=== PATIENT | male | born 1950 | race American Indian/Alaskan Native ===

== ENCOUNTER 2016-06-14 07:31 | Day surgery (SDC) | payer MEDICARE, OTHER ==
[2016-06-07 13:22] VITALS: BMI 38.0
[2016-06-14] MEDS ORDERED: Propofol 10 mg/ml Inj (20 ML) ONE (08:45)
[2016-06-14] MEDS ORDERED: Lactated Ringer's 1,000 ML IV SCH (09:39)
[2016-06-14 10:09] VITALS: O2SAT 95
[2016-06-14 10:33] VITALS: BP 132/87; PULSE 79; RESP 18; TEMP 97.6
== END 2016-06-14 11:40 | disposition home or self-care (01) ==
LOC: ENDO 07:31
PROVIDERS: ATTEND Specialist
DX: Z12.11 Encounter for screening for malignant neoplasm of colon (principal); D12.2 Benign neoplasm of ascending colon; D12.0 Benign neoplasm of cecum; D12.4 Benign neoplasm of descending colon; K57.30 Diverticulosis of large intestine without perforation or abscess without bleeding; K64.8 Other hemorrhoids; I25.10 Atherosclerotic heart disease of native coronary artery without angina pectoris; I50.9 Heart failure, unspecified; J44.9 Chronic obstructive pulmonary disease, unspecified; E78.5 Hyperlipidemia, unspecified; I25.2 Old myocardial infarction
CPT/HCPCS: 45390; 88305; J2704; J7040; J7120

== ENCOUNTER 2016-08-17 08:34 | Observation (INO) | payer MEDICARE, OTHER ==
[2016-08-17 08:44] VITALS: BMI 37.5
[2016-08-17] MEDS ORDERED: Albuterol-Ipratrop 3 mg / 0.5 (3 ml) UD IH STA (09:02)
--- NOTE | 2016-08-17 09:07 | ED PDOC ---
Arrival/HPI - General Historian: Patient - History of Present Illness Time/Duration: > month Symptom Onset: Gradual Symptom Course: Worsening Context: Walking <Melanie Donaldson - Last Filed: 08/17/16 12:23> <Harry Seals - Last Filed: 08/17/16 14:11> - General Chief Complaint: Shortness Of Breath Time Seen by Provider: 08/17/16 08:45 - History of Present Illness Narrative History of Present Illness (Text): 08/17/16 09:01 Patient is a 66 y/o M with PMH of ND x2 s/p 2 stents ( 1 year ago), CHF, morbidly obese presenting with shortness of breath and chest pain. Patient states the sob has been going on for 2 months. Patient states he recently traveled to , came back to the state yesterday, and feels like the sob is worsening. Patient didn't take his Lasix for 1 week, he forgot to take his meds to . Patient is mostly sedentary, he gets sob when he walks less than a block. Patient states the chest pain is on/off, currently no chest pain, when it comes it feels tight, no radiation. Patient is also c/o dry cough, and wheezing. Patient denies n/v/d, denies fever, chills, denies h/o tobacco. Patient c/o increased in abdominal girths and lower extremities edema. Upon further questioning, patient reported he has h/o sleep apnea, was suppose to be on bipap at night, but has not been compliant. (Melanie Donaldson) Past Medical History - Provider Review Nursing Documentation Reviewed: Yes - Travel History Have you recently traveled outside [place] w/in the past 3 mons?: No - Infectious Disease Hx of Infectious Diseases: None - Tetanus Immunization Tetanus Immunization: Unknown - Cardiac Hx Cardiac Disorders: Yes Hx Congestive Heart Failure: Yes Hx Hypertension: Yes Hx Pacemaker: No - Pulmonary Hx Respiratory Disorders: No - Neurological Hx Paralysis: No - HEENT Hx HEENT Disorder: Yes ([place]) - Renal Hx Renal Disorder: No - Endocrine/Metabolic Hx Endocrine Disorders: No - Hematological/Oncological Hx Blood Transfusions: No Hx Blood Transfusion Reaction: No - Integumentary Hx Dermatological Disorder: No - Musculoskeletal/Rheumatological Hx Musculoskeletal Disorders: No - Gastrointestinal Hx Gastrointestinal Disorders: No - Genitourinary/Gynecological Hx Genitourinary Disorders: No - Psychiatric Hx Emotional Abuse: No Hx Physical Abuse: No Hx Substance Use: No - Surgical History Hx Cardiac Catheterization: Yes Hx Coronary Stent: Yes (x3) - Anesthesia Hx Anesthesia: Yes Hx Anesthesia Reactions: No Hx Malignant Hyperthermia: No - Suicidal Assessment Feels Threatened In Home Enviroment: No <Melanie Donaldson - Last Filed: 08/17/16 12:23> Family/Social History - Physician Review Nursing Documentation Reviewed: Yes Family/Social History: Hypertension, CAD/ND Smoking Status: Never Smoked Hx Alcohol Use: No Hx Substance Use: No <Melanie Donaldson - Last Filed: 08/17/16 12:23> Allergies/Home Meds <Melanie Donaldson - Last Filed: 08/17/16 12:23> <Harry Seals - Last Filed: 08/17/16 14:11> Allergies/Adverse Reactions: Allergies No Known Allergies Allergy (Verified 08/17/16 08:56) Home Medications: Home Meds Medication Instructions Recorded Confirmed Aspirin [Ecotrin] 81 mg PO DAILY 06/09/16 08/17/16 Clopidogrel [Plavix] 75 mg PO DAILY 06/09/16 08/17/16 Ergocalciferol (Vitamin D2) 50,000 unit PO Q7D 06/09/16 08/17/16 [Vitamin D2] Febuxostat [Uloric] 40 mg PO DAILY 06/09/16 08/17/16 Folic Acid 1 mg PO DAILY 06/09/16 08/17/16 Furosemide [Lasix] 20 mg PO DAILY 06/09/16 08/17/16 Rosuvastatin Calcium [Crestor] 10 mg PO DAILY 06/09/16 08/17/16 amLODIPine [Norvasc] 10 mg PO DAILY 06/09/16 08/17/16 Review of Systems - Review of Systems Constitutional: Normal Eyes: Normal ENT: Normal Respiratory: SOB, Cough, Wheezing. absent: Sputum Cardiovascular: Chest Pain, Edema, Orthopnea. absent: Palpitations, Calf Pain, Syncope Gastrointestinal: Normal, Abdominal Pain Genitourinary Male: Normal Musculoskeletal: Normal Skin: Normal Neurological: Normal Endocrine: Normal Hemo/Lymphatic: Normal Psychiatric: Normal <Melanie Donaldson - Last Filed: 08/17/16 12:23> Physical Exam Temperature: Afebrile Blood Pressure: Normal Pulse: Regular Respiratory Rate: Normal Appearance: Positive for: Well-Appearing, Non-Toxic, Comfortable Pain Distress: None Mental Status: Positive for: Alert and Oriented X 3 - Systems Exam Head: Present: Atraumatic, Normocephalic Conjunctiva: No: Icteric Mouth: Present: Dry Neck: Present: Normal Range of Motion, Other (short neck ). No: JVD, Lymphadenopathy Respiratory/Chest: Present: Wheezes, Rales (at the base). No: Clear to Auscultation, Respiratory Distress, Accessory Muscle Use, Decreased Breath Sounds, Retracting, Rhonchi, Tachypneic Cardiovascular: Present: Regular Rate and Rhythm, Normal S1, S2. No: Murmurs, Irregular Rhythm, Tachycardic, Bradycardic, Rub, Gallop, Muffled Abdomen: Present: Distention, Normal Bowel Sounds. No: Tenderness, Peritoneal Signs, Rebound, Guarding Upper Extremity: Present: Normal Inspection. No: Cyanosis, Edema Lower Extremity: Present: Normal Inspection, Edema (+3), NORMAL PULSES. No: CALF TENDERNESS Neurological: Present: GCS=15 Skin: Present: Warm, Dry, Rashes, Normal Color Psychiatric: Present: Alert, Oriented x 3, Normal Insight, Normal Concentration <Melanie Donaldson - Last Filed: 08/17/16 12:23> Medical Decision Making Re-evaluation Time: 10:55 - Lab Interpretations I have reviewed the lab results: Yes Interpretation: All labs normal - RAD Interpretation Physical Education Instructor: Radiologist - EKG Interpretation Interpreted by ED Physician: Yes Type: 12 lead EKG <Melanie Donaldson - Last Filed: 08/17/16 12:23> <Harry Seals - Last Filed: 08/17/16 14:11> ED Course and Treatment: 08/17/16 09:08 Patient is a 66 y/o with h/o ND with 2 stents , chf and morbidly obese presenting with sob and cp. Differentials: chf exacerbation, r/o ACS, Less likely PE. Plan: cbc, cmp, bnp, tsh, cardiac enzymes, ua, bcx chest x-ray , ekg asa 81 mg stats, duoneb Discussed with Dr Seals. 08/17/16 11:22 pro bnp normal troponin normal, chest x-ray with no acute disease, patient is saturating 89-90% on room air. D-dimer normal. Spoke to Dr Byrd, patient to be admitted on tele obs for chest pain r/o ACS. Patient is aware of the admission. (Melanie Donaldson) Patient Seen With Resident: In agreement with resident note. Patient was seen and evaluated with resident, came up with plan and treatment together. (Harry Seals) - Lab Interpretations Lab Results: 08/17/16 09:10 08/17/16 09:10 Lab Results 08/17/16 10:15: D-Dimer, Quantitative 0.36 08/17/16 10:15: Urine Color Yellow, Urine Appearance Clear, Urine pH 6.0, Ur Specific [place] 1.020, Urine Protein Negative, Urine Glucose (UA) Negative, Urine Ketones Negative, Urine Blood Small H, Urine Nitrate Negative, Urine Bilirubin Negative, Urine Urobilinogen 0.2, Ur Leukocyte Esterase Trace H, Urine RBC 15 - 20, Urine WBC 0 - 2 08/17/16 09:10: Sodium 140, Chloride 103, Potassium 3.8, Carbon Dioxide 30, Anion Gap 11, BUN 11, Creatinine 0.9, Est GFR ( Amer) > 60, Est GFR (Non- Af Amer) > 60, Random Glucose 127 H, Calcium 9.0, Total Bilirubin 0.7, AST 25, ALT 34, Alkaline Phosphatase 98, Lactate Dehydrogenase 487, Total Creatine Kinase 133, Troponin I 0.02, NT-Pro-B Natriuret Pep 153, Total Protein 7.5, Albumin 4.0, Globulin 3.5, Albumin/Globulin Ratio 1.1 08/17/16 09:10: pO2 79 H, VBG pH 7.35, VBG pCO2 58.0, VBG HCO3 32.0 H, VBG Total CO2 33.8 H, VBG O2 Sat (Calc) 96.8 H, VBG Base Excess 4.7 H, VBG Potassium 3.8, Sodium 138.0, Chloride 105.0, Glucose 129 H, Lactate 1.4, FiO2 21.0, Venous Blood Potassium 3.8 08/17/16 09:10: WBC 7.4 D, RBC 5.10, Hgb 14.8, Hct 45.4, MCV 89.0, MCH 29.0, MCHC 32.6, RDW 13.5, Plt Count 168, MPV 10.3, Gran % 69.4 H, Lymph % (Auto) 20.3 L, [place] % (Auto) 7.4 H, Eos % (Auto) 2.6, Baso % (Auto) 0.3, Gran # 5.13, Lymph # 1.5, [place] # 0.6, Eos # 0.2, Baso # 0.02 - RAD Interpretation Narrative RAD Interpretations (Text): 08/17/16 12:25 No active disease. (Melanie Donaldson) Radiology Orders: 08/17/16 08:56 CHEST PORTABLE [RAD] Stat - EKG Interpretation EKG Interpretation (Text): 08/17/16 12:24 Sinus rhythm with premature atrial complexes Possible Left atrial enlargement Left axis deviation Incomplete right bundle branch block Inferior infarct, age undetermined Cannot rule out Anterior infarct, age undetermined (Melanie Donaldson) - Medication Orders Current Medication Orders: Albuterol/Ipratropium (Duoneb 3 Mg/0.5 Mg (3 Ml) Ud) 3 ml IH Q4 PRN PRN Reason: Shortness of Breath Amlodipine Besylate (Norvasc) 10 mg PO DAILY [facility] Aspirin (Aspirin Chewable) 81 mg PO DAILY [facility] Atorvastatin Calcium (Lipitor) 20 mg PO DIN [facility] Clopidogrel Bisulfate (Plavix) 75 mg PO DAILY [facility] Folic Acid (Folic Acid) 1 mg PO DAILY [facility] Furosemide (Lasix) 40 mg PO DAILY [facility] Discontinued Medications Albuterol/Ipratropium (Duoneb 3 Mg/0.5 Mg (3 Ml) Ud) 3 ml IH STAT STA Stop: 08/17/16 09:03 Last Admin: 08/17/16 09:09 Dose: 3 ml Aspirin (Aspirin Chewable) 81 mg PO STAT STA Stop: 08/17/16 08:59 Last Admin: 08/17/16 09:11 Dose: 81 mg Furosemide (Lasix) 20 mg IVP STAT STA Stop: 08/17/16 10:05 Last Admin: 08/17/16 10:09 Dose: 20 mg <Melanie Donaldson - Last Filed: 08/17/16 12:23> - Scribe Statement The provider has reviewed the documentation as recorded by the Scribe <Harry Seals - Last Filed: 08/17/16 14:11> - Scribe Statement Joey Kitchen Provider Scribe Attestation: All medical record entries made by the Scribe were at my direction and personally dictated by me. I have reviewed the chart and agree that the record accurately reflects my personal performance of the history, physical exam, medical decision making, and the department course for this patient. I have also personally directed, reviewed, and agree with the discharge instructions and disposition. (Harry Seals) Disposition/Present on Arrival - Present on Arrival Any Indicators Present on Arrival: No History of DVT/PE: No History of Uncontrolled Diabetes: No Urinary Catheter: No History of Decub. Ulcer: No History Surgical Site Infection Following: None - Disposition Have Diagnosis and Disposition been Completed?: Yes Disposition Time: 11:25 Patient Plan: Observation, Telemetry <Melanie Donaldson - Last Filed: 08/17/16 12:23> <Harry Seals - Last Filed: 08/17/16 14:11> - Disposition Diagnosis: Chest pain, Dyspnea on exertion Disposition: HOSPITALIZED Patient Problems: Current Active Problems Problem Status Onset Chest pain Acute Dyspnea on exertion Acute Condition: STABLE
[2016-08-17 09:16] LABS: VENOUS BLOOD GAS BASE EXCESS 4.7 mmol/L (0.0-2.0); VENOUS BLOOD GAS PO2 79 mm/Hg (30-55); VENOUS BLOOD PH 7.35 (7.32-7.43)
[2016-08-17 09:28] LABS: ALB/GLOB RATIO 1.1 (1.1-1.8); ALT/SGPT 34 U/L (7-56); AST/SGOT 25 U/L (15-59); BLOOD UREA NITROGEN 11 mg/dL (7-21); GFR AFRICAN-AMERICAN > 60; GFR NON-AFRICAN AMERICAN > 60
[2016-08-17 09:29] LABS: BASO # 0.02 K/mm3 (0.0-2.0); BASO % 0.3 % (0.0-3.0); EOS # 0.2 (0.0-0.7); EOS % 2.6 % (1.5-5.0); GRAN # 5.13 (1.4-6.5); GRAN % 69.4 % (50.0-68.0); HEMOGLOBIN 14.8 gm/dL (14.0-18.0); LYMPH # 1.5 (1.2-3.4); LYMPH % 20.3 % (22.0-35.0); MEAN CORPUSCULAR HGB CONC 32.6 g/dl (31.0-37.0); MEAN PLATELET VOLUME 10.3 fl (7.0-11.0); MONO # 0.6 (0.1-0.6); MONO % 7.4 % (1.0-6.0); PLATELET COUNT 168 10^3/uL (120.0-450.0); RED CELL DISTRIBUTION WIDTH 13.5 % (11.5-14.5); WHITE BLOOD COUNT 7.4 10^3/ul (4.5-11.0)
[2016-08-17 09:40] LABS: B-TYPE NATRIURETIC PEPTIDE 153 pg/mL (0-450); TROPONIN I 0.02 ng/mL
--- NOTE | 2016-08-17 09:44 | RAD ---
HISTORY: sob COMPARISON: 11/01/2013 FINDINGS: LUNGS: No active pulmonary disease. PLEURA: No significant pleural effusion identified, no pneumothorax apparent. CARDIOVASCULAR: Normal. OSSEOUS STRUCTURES: No significant abnormalities. VISUALIZED UPPER ABDOMEN: Normal. OTHER FINDINGS: None. IMPRESSION: No active disease.
[2016-08-17 10:28] LABS: URINE BILIRUBIN NEGATIVE (NEGATIVE); URINE BLOOD SMALL (NEGATIVE); URINE GLUCOSE (UA) NEGATIVE (NEGATIVE); URINE LEUKOCYTE ESTERASE TRACE Leu/uL (NEGATIVE); URINE NITRATE NEGATIVE (NEGATIVE); URINE PROTEIN NEGATIVE mg/dL (<30 mg/dL); URINE UROBILINOGEN 0.2 E.U./dL (<1 E.U./dL)
[2016-08-17 10:33] LABS: URINE APPEARANCE CLEAR (CLEAR); URINE COLOR YELLOW (YELLOW)
[2016-08-17 10:45] LABS: URINE RBC 15 - 20 /hpf (0-2); URINE WBC 0 - 2 /hpf (0-6)
--- NOTE | 2016-08-17 12:04 | CARD ---
APPROVED REPORT EKG Measurement Heart [id number] <Conclusion> Sinus rhythm with premature atrial complexes Possible Left atrial enlargement Left axis deviation Incomplete right bundle branch block Inferior infarct, age undetermined Cannot rule out Anterior infarct, age undetermined Abnormal ECG
[2016-08-17] MEDS ORDERED: Albuterol-Ipratrop 3 mg / 0.5 (3 ml) UD IH PRN (13:03)
--- NOTE | 2016-08-17 13:17 | CP.PCM.HP ---
History of Present Illness - History of Present Illness History of Present Illness: History of Present Illness: The patient is a 66 yo man with past medical history of CAD s/p PCI with stent placement, CHF and ESTRADA who presented to [facility] for evaluation of a several week history of worsening dyspnea. The patient recently returned from the [facility] and states that his symptoms have been worse for the past several days. He reports exertional dyspnea and mild substernal chest pain but denies dyspnea at rest, orthopnea, paroxysmal nocturnal dyspnea or claudication. Of note he did not take his medications with him on vacation and furthermore reports noncompliance with his home CPAP. Upon arrival to the ED he was largely hemodynamically stable and initial lab studies were unremarkable. Given his history he was admitted to the telemetry myles to r/o ACS. Past Medical History: As per HPI, also hypvitaminosis D, morbid obesity and HL Past Surgical History: As per HPI Allergies: NKDA Medications: Reconciled as per MAR Family History: Significant for HTN, HL and CAD Social History: The patient reports social EtOH but otherwise denies any toxic habits Review Of Systems: A 14 point review of systems is negative except as per HPI Physical Examination: VS: T 97.7, P 80, BP 141/94, RR 20, O2 saturation 93% on 2L NC Gen: morbidly obese man sitting up in bed in mild respiratory distress HEENT: PERRL, EOMI, no icterus Neck: no JVD Lungs: good air entry b/l with distant breath sounds, no wheeze CV: RRR, normal S1, S2 Abd: obese, NABS, soft, NT, ND Ext: trace b/l LE edema Neuro: AAO x 3, no focal deficits Laboratory Data: CBC reviewed and unremarkable, CMP reviewed and unremarkable Troponin negative x 1, BNP normal Imaging Studies: CXR demonstrates no active disease Assessment: The patient is a 66 yo man with CAD s/p PCI with stent placement, CHF and ESTRADA who presented with a several week history of worsening exertional dyspnea and substernal CP Plan: 1. CP, r/o ACS. Dr. Metz consulted for further evaluation and recommendations. Cycle EKG and CE's x 2. Resume home medications 2. CAD s/p PCI with stent. Continue with care as per #1. Resume home medications 3. CHF. the patient does not appear to be in acute HF. continue to monitor strict I/Os 4. ESTRADA. Encouraged patient to adhere to CPAP as prescribed. Code Status: Full Code Present on Admission - Present on Admission Any Indicators Present on Admission: Yes Past Patient History - Infectious Disease Hx of Infectious Diseases: None - Tetanus Immunizations Tetanus Immunization: Unknown - Past Social History Smoking Status: Never Smoked - CARDIAC Hx Cardiac Disorders: Yes Hx Congestive Heart Failure: Yes Hx Hypertension: Yes Hx Pacemaker: No - PULMONARY Hx Respiratory Disorders: No - NEUROLOGICAL Hx Paralysis: No - HEENT Hx HEENT Problems: Yes ([place]) - RENAL Hx Chronic Kidney Disease: No - ENDOCRINE/METABOLIC Hx Endocrine Disorders: No - HEMATOLOGICAL/ONCOLOGICAL Hx Blood Transfusions: No Hx Blood Transfusion Reaction: No - INTEGUMENTARY Hx Dermatological Problems: No - MUSCULOSKELETAL/RHEUMATOLOGICAL Hx Musculoskeletal Disorders: No - GASTROINTESTINAL Hx Gastrointestinal Disorders: No - GENITOURINARY/GYNECOLOGICAL Hx Genitourinary Disorders: No - PSYCHIATRIC Hx Emotional Abuse: No Hx Physical Abuse: No Hx Substance Use: No - SURGICAL HISTORY Hx Cardiac Catheterization: Yes Hx Coronary Stent: Yes (x3) - ANESTHESIA Hx Anesthesia: Yes Hx Anesthesia Reactions: No Hx Malignant Hyperthermia: No Meds Allergies/Adverse Reactions: Allergies Allergy/AdvReac Type Severity Reaction Status Date / Time No Known Allergies Allergy Verified 08/17/16 08:56 Results - Vital Signs Recent Vital Signs: Last Vital Signs Temp 97.8 F 08/17/16 08:52 Pulse 88 08/17/16 13:04 Resp 18 08/17/16 13:04 BP 134/53 L 08/17/16 13:04 Pulse Ox 94 L 08/17/16 13:04 - Labs Result Diagrams: 08/17/16 09:10 08/17/16 09:10
--- NOTE | 2016-08-17 15:28 | CP.PCM.CON ---
History of Present Illness - History of Present Illness History of Present Illness: Cardiology consult 08/17/16 Pt is a 66 yr old male who presents w progressive SOB and pedal edema PMH Pt is noncompliant to diet and stopped taking his lasix for 1 wk while on vacation. He has not followed his cardiac risk reduction program Hx of PCI of LAD and RCA Hypertension COPD SH denies smoking Ros: 14 point ROS, notable for pedal edema and SOB. No angina noted PE BP141/91 HR 90 reg neck: pos for JVD Lungs: decreased BS bilaterally Cor: s1s2 Ext: 1+ edema bilaterally EKG: NSR with IWMI of ID BNP 153 trop 0.02 Impression: Acute systolic CHF CAD Hx of PTCA STent of RCA and LAD No evidence for ACS Hypertension Hypercholestermia Obesity Non compliant with medical advice Plan IV Lasix BID x 48 hrs serial trops ECHO for LV function Past Patient History - Infectious Disease Hx of Infectious Diseases: None - Tetanus Immunizations Tetanus Immunization: Unknown - Past Social History Smoking Status: Never Smoked - CARDIAC Hx Cardiac Disorders: Yes Hx Congestive Heart Failure: Yes Hx Hypertension: Yes Hx Pacemaker: No - PULMONARY Hx Respiratory Disorders: No - NEUROLOGICAL Hx Paralysis: No - HEENT Hx HEENT Problems: Yes ([place]) - RENAL Hx Chronic Kidney Disease: No - ENDOCRINE/METABOLIC Hx Endocrine Disorders: No - HEMATOLOGICAL/ONCOLOGICAL Hx Blood Transfusions: No Hx Blood Transfusion Reaction: No - INTEGUMENTARY Hx Dermatological Problems: No - MUSCULOSKELETAL/RHEUMATOLOGICAL Hx Musculoskeletal Disorders: No - GASTROINTESTINAL Hx Gastrointestinal Disorders: No - GENITOURINARY/GYNECOLOGICAL Hx Genitourinary Disorders: No - PSYCHIATRIC Hx Emotional Abuse: No Hx Physical Abuse: No Hx Substance Use: No - SURGICAL HISTORY Hx Cardiac Catheterization: Yes Hx Coronary Stent: Yes (x3) - ANESTHESIA Hx Anesthesia: Yes Hx Anesthesia Reactions: No Hx Malignant Hyperthermia: No Meds Allergies/Adverse Reactions: Allergies Allergy/AdvReac Type Severity Reaction Status Date / Time No Known Allergies Allergy Verified 08/17/16 08:56 - Medications Medications: Current Medications Albuterol/Ipratropium (Duoneb 3 Mg/0.5 Mg (3 Ml) Ud) 3 ml IH Q4 PRN PRN Reason: Shortness of Breath Amlodipine Besylate (Norvasc) 10 mg PO DAILY [facility] Aspirin (Aspirin Chewable) 81 mg PO DAILY [facility] Atorvastatin Calcium (Lipitor) 20 mg PO DIN [facility] Clopidogrel Bisulfate (Plavix) 75 mg PO DAILY [facility] Folic Acid (Folic Acid) 1 mg PO DAILY [facility] Furosemide (Lasix) 40 mg IVP BID [facility] Results - Vital Signs Recent Vital Signs: Last Vital Signs Temp 97.8 F 08/17/16 08:52 Pulse 81 08/17/16 14:41 Resp 18 08/17/16 13:04 BP 134/53 L 08/17/16 13:04 Pulse Ox 94 L 08/17/16 13:04 - Labs Result Diagrams: 08/17/16 09:10 08/17/16 09:10
[2016-08-17] MEDS ORDERED: Pneumococcal 23-Valent Vaccine IM ONE (17:45)
[2016-08-18 07:41] LABS: MEAN CORPUSCULAR HEMOGLOBIN 28.8 pg (25.0-35.0); MEAN PLATELET VOLUME 10.4 fl (7.0-11.0); RBC 5.21 10^6/uL (3.5-6.1); RED CELL DISTRIBUTION WIDTH 13.6 % (11.5-14.5)
[2016-08-18 08:02] LABS: ALB/GLOB RATIO 1.2 (1.1-1.8); ALBUMIN 4.1 g/dL (3.0-4.8); ALT/SGPT 37 U/L (7-56); AST/SGOT 25 U/L (15-59); BLOOD UREA NITROGEN 12 mg/dL (7-21); CALCIUM 8.9 mg/dL (8.4-10.5); GFR AFRICAN-AMERICAN > 60; GFR NON-AFRICAN AMERICAN > 60
[2016-08-18 08:04] LABS: TROPONIN I < 0.01 ng/mL
--- NOTE | 2016-08-18 11:10 | CP.PCM.PN ---
Subjective - Date & Time of Evaluation Date of Evaluation: 08/18/16 Time of Evaluation: 11:00 - Subjective Subjective: cardiology fu Pt's breathing is improved VSS neck neg JVD lungs decreased MS cor s1s2 ext trace edema Labs noted Impressions CHF CAD stable angina hypertension obesity constant noncompliance Plan change to PO lasix DC telemetry Discussed diet and weight loss w patient and family Objective - Vital Signs/Intake and Output Vital Signs (last 24 hours): Temp Pulse Resp BP Pulse Ox 97.9 F 101 H 20 131/75 96 08/18/16 06:00 08/18/16 06:00 08/18/16 06:00 08/18/16 09:59 08/18/16 06:00 Intake and Output: 08/18/16 08/18/16 06:59 18:59 Intake Total 360 Output Total 3550 Balance -3190 - Medications Medications: Current Medications Albuterol/Ipratropium (Duoneb 3 Mg/0.5 Mg (3 Ml) Ud) 3 ml IH Q4 PRN PRN Reason: Shortness of Breath Amlodipine Besylate (Norvasc) 10 mg PO DAILY [facility] Last Admin: 08/18/16 09:58 Dose: 10 mg Aspirin (Aspirin Chewable) 81 mg PO DAILY [facility] Last Admin: 08/18/16 09:58 Dose: 81 mg Atorvastatin Calcium (Lipitor) 20 mg PO DIN [facility] Last Admin: 08/17/16 17:07 Dose: Not Given Clopidogrel Bisulfate (Plavix) 75 mg PO DAILY [facility] Last Admin: 08/18/16 09:58 Dose: 75 mg Folic Acid (Folic Acid) 1 mg PO DAILY [facility] Last Admin: 08/18/16 09:58 Dose: 1 mg Furosemide (Lasix) 40 mg PO BID [facility] - Labs Labs: 08/18/16 06:30 08/18/16 06:30
--- NOTE | 2016-08-18 16:29 | CARD ---
APPROVED REPORT EXAM: Two-dimensional and M-mode echocardiogram with Doppler and color Doppler. INDICATION Dyspnea 2D DIMENSIONS Left Atrium (2D)3.8 (1.6-4.0cm)IVSd1.7 (0.7-1.1cm) LVDd4.9 (3.9-5.9cm)PWd1.4 (0.7-1.1cm) LVDs3.9 (2.5-4.0cm)FS (%) 21.3 % LVEF (%)42.9 (>50%) M-Mode DIMENSIONS Aortic Root3.40 (2.2-3.7cm)Aortic Cusp Exc.2.00 (1.5-2.0cm) Aortic Valve AoV Peak Fdmwyqps774.0cm/Brianna Peak GR.8mmHg Mitral Valve MV E Iqxsimxr89.1cm/sMV A Eawforpu387.0cm/sE/A ratio0.6 TDI E/Lateral E'0.0E/Medial E'0.0 Tricuspid Valve TR Peak [id number]/sRAP [id number] Peak Gr.7mmHg [id number] LEFT VENTRICLE The left ventricle is normal size. There is mild to moderate concentric left ventricular hypertrophy. The systolic function is moderately impaired. There is global hypokinesis of the left ventricle. Transmitral Doppler flow pattern is Grade I-abnormal relaxation pattern. RIGHT VENTRICLE The right ventricle is normal size. There is normal right ventricular wall thickness. The right ventricular systolic function is normal. ATRIA The left atrium size is normal. The right atrium size is normal. AORTIC VALVE The aortic valve is mildly thickened. No aortic regurgitation is present. MITRAL VALVE The mitral valve is mildly thickened. There is no mitral valve regurgitation noted. TRICUSPID VALVE The tricuspid valve is normal in structure. There is no tricuspid valve regurgitation noted. GREAT VESSELS The aortic root is normal in size. The IVC is normal in size and collapses >50% with inspiration. PERICARDIAL EFFUSION There is a trace loculated anterior pericardial effusion. <Conclusion> The left ventricle is normal size. There is mild to moderate concentric left ventricular hypertrophy. The systolic function is moderately impaired. There is global hypokinesis of the left ventricle. Transmitral Doppler flow pattern is Grade I-abnormal relaxation pattern.
--- NOTE | 2016-08-18 20:05 | CP.PCM.PN ---
Subjective - Date & Time of Evaluation Date of Evaluation: 08/18/16 Time of Evaluation: 09:00 - Subjective Subjective: Subjective: No acute events overnight. Patient with satisfactory diuresis and with symptomatic improvement. No complaints of CP, palpitations or dyspnea. Objective: VS: T 97.7, P 77, BP 135/88, RR 18, O2 saturation 98% 2L NC Gen: obese man in NAD HEENT: no icterus Neck: no JVD Lungs: decreased BS to bases CV: RRR, normal S1, S2 Abd: obese, NABS, soft, NT, ND Ext: trace pedal edema Neuro: no focal deficits Labs: Reviewed and unremarkable, troponin negative x 2 Assessment: 66 yo man with CAD s/p PCI with stent and morbid obesity who presented with dyspnea and pedal edema Plan: 1. Acute systolic HF exacerbation. Patient s/p course of IV lasix which has since been changed to PO lasix. TTE reviewed. Input from Dr. Metz noted and appreciated. Monitor strict I/Os. Reinforce need for medication adherence 2. CAD s/p PCI with stent. No evidence for ACS. Continue home meds 3. HTN. Continue home medications 4. Obesity. Counseled on diet and exercise and recommended dietary evaluation Code Status: Full Code Objective - Vital Signs/Intake and Output Vital Signs (last 24 hours): Temp Pulse Resp BP Pulse Ox 98 F 94 H 18 138/85 96 08/18/16 11:29 08/18/16 11:29 08/18/16 11:29 08/18/16 17:22 08/18/16 06:00 Intake and Output: 08/18/16 08/19/16 18:59 06:59 Intake Total 1620 Output Total 900 Balance 720 - Medications Medications: Current Medications Albuterol/Ipratropium (Duoneb 3 Mg/0.5 Mg (3 Ml) Ud) 3 ml IH Q4 PRN PRN Reason: Shortness of Breath Amlodipine Besylate (Norvasc) 10 mg PO DAILY [facility] Last Admin: 08/18/16 09:58 Dose: 10 mg Aspirin (Aspirin Chewable) 81 mg PO DAILY [facility] Last Admin: 08/18/16 09:58 Dose: 81 mg Atorvastatin Calcium (Lipitor) 20 mg PO DIN [facility] Last Admin: 08/18/16 17:22 Dose: 20 mg Clopidogrel Bisulfate (Plavix) 75 mg PO DAILY [facility] Last Admin: 06/30/17 09:58 Dose: 75 mg Folic Acid (Folic Acid) 1 mg PO DAILY [facility] Last Admin: 08/18/16 09:58 Dose: 1 mg Furosemide (Lasix) 40 mg PO BID [facility] Last Admin: 08/18/16 17:22 Dose: 40 mg - Labs Labs: 08/18/16 06:30 08/18/16 06:30
[2016-08-19 07:16] LABS: HEMOGLOBIN 15.6 gm/dL (14.0-18.0); MEAN CELL VOLUME 89.1 fL (80.0-105.0); MEAN CORPUSCULAR HEMOGLOBIN 29.3 pg (25.0-35.0); MEAN CORPUSCULAR HGB CONC 32.8 g/dl (31.0-37.0); MEAN PLATELET VOLUME 10.1 fl (7.0-11.0); RBC 5.33 10^6/uL (3.5-6.1); RED CELL DISTRIBUTION WIDTH 13.6 % (11.5-14.5); WHITE BLOOD COUNT 7.2 10^3/ul (4.5-11.0)
[2016-08-19 07:46] LABS: ALB/GLOB RATIO 1.2 (1.1-1.8); ALBUMIN 4.1 g/dL (3.0-4.8); ALT/SGPT 31 U/L (7-56); AST/SGOT 23 U/L (15-59); BLOOD UREA NITROGEN 13 mg/dL (7-21); CALCIUM 9.1 mg/dL (8.4-10.5); GFR AFRICAN-AMERICAN > 60; GFR NON-AFRICAN AMERICAN > 60
[2016-08-19 07:50] VITALS: BP 157/95; PULSE 85; RESP 22; TEMP 98.4; O2SAT 94
--- NOTE | 2016-08-19 08:46 | CP.PCM.PN ---
Subjective - Date & Time of Evaluation Date of Evaluation: 08/19/16 Time of Evaluation: 08:40 - Subjective Subjective: Subjective: Patient seen and examined at bedside on general medical myles. No acute events overnight. He remains afebrile and hemodynamically stable and endorses resolution of his pulmonary symptoms. He states he feels great and wants to go home. Objective: VS: T 98.4, P 80, BP 147/95, RR 18, O2 97% 2L NC Gen: NAD HEENT: PERRL, EOMI, no icterus Neck: no JVD Lungs: CTA CV: RRR, normal S1, S2 Abd: obese, NABS, soft, NT, ND Ext: no c/c/e Neuro: AAO x 3, no focal motor deficits Labs: Reviewed and largely unremarkable Assessment: The patient is a 66 yo man with past medical history of CAD s/p PCI with stent placement, ESTRADA and morbid obesity who presented with progressively worsening pedal edema and EATON Plan: 1. Acute systolic HF exacerbation, resolved. The patient has diuresed well since admission and reports resolution of his symptoms and states he feels back to his baseline. Input from Dr. Metz appreciated, c/w meds as per cardiology 2. CAD s/p PCI with stent placement. c/w with current medications, reinforced need for medication compliance and lifestyle changes 3. HTN. BP controlled, c/w current medications 4. Obesity. As above, lifestyle modifications encouraged Code Status: Full Code Objective - Vital Signs/Intake and Output Vital Signs (last 24 hours): Temp Pulse Resp BP Pulse Ox 98.4 F 85 22 157/95 H 94 L 08/19/16 07:49 08/19/16 07:49 08/19/16 07:49 08/19/16 07:49 08/19/16 07:49 Intake and Output: 08/19/16 08/19/16 06:59 18:59 Intake Total 900 Output Total 1000 Balance -100 - Medications Medications: Current Medications Albuterol/Ipratropium (Duoneb 3 Mg/0.5 Mg (3 Ml) Ud) 3 ml IH Q4 PRN PRN Reason: Shortness of Breath Amlodipine Besylate (Norvasc) 10 mg PO DAILY [facility] Last Admin: 08/18/16 09:58 Dose: 10 mg Aspirin (Aspirin Chewable) 81 mg PO DAILY [facility] Last Admin: 08/18/16 09:58 Dose: 81 mg Atorvastatin Calcium (Lipitor) 20 mg PO DIN [facility] Last Admin: 08/18/16 17:22 Dose: 20 mg Clopidogrel Bisulfate (Plavix) 75 mg PO DAILY [facility] Last Admin: 08/18/16 09:58 Dose: 75 mg Folic Acid (Folic Acid) 1 mg PO DAILY [facility] Last Admin: 08/18/16 09:58 Dose: 1 mg Furosemide (Lasix) 40 mg PO BID [facility] Last Admin: 08/18/16 17:22 Dose: 40 mg - Labs Labs: 08/19/16 06:30 08/19/16 06:30
--- NOTE | 2016-08-27 10:32 | CP.PCM.DIS ---
Provider - Provider Date of Admission: 08/17/16 12:16 Attending physician: Obi Byrd MD Primary care physician: Obi Byrd MD Consults: Dr. Metz (cardiology) Time Spent in preparation of Discharge (in minutes): 40 Diagnosis - Discharge Diagnosis (1) Acute systolic (congestive) heart failure Status: Acute Hospital Course - Lab Results Lab Results: Micro Results 08/17/16 13:30 Urine,Clean Catch Urine Culture - Final No Growth (<1,000 CFU/ML) Most Recent Lab Values WBC 7.2 10^3/ul (4.5-11.0) 08/19/16 06:30 RBC 5.33 10^6/uL (3.5-6.1) 08/19/16 06:30 Hgb 15.6 gm/dL (14.0-18.0) 08/19/16 06:30 Hct 47.5 % (42.0-52.0) 08/19/16 06:30 MCV 89.1 fL (80.0-105.0) 08/19/16 06:30 MCH 29.3 pg (25.0-35.0) 08/19/16 06:30 MCHC 32.8 g/dl (31.0-37.0) 08/19/16 06:30 RDW 13.6 % (11.5-14.5) 08/19/16 06:30 Plt Count 167 10^3/uL (120.0-450.0) 08/19/16 06:30 MPV 10.1 fl (7.0-11.0) 08/19/16 06:30 Gran % 69.4 % (50.0-68.0) H 08/17/16 09:10 Lymph % (Auto) 20.3 % (22.0-35.0) L 08/17/16 09:10 Collier % (Auto) 7.4 % (1.0-6.0) H 08/17/16 09:10 Eos % (Auto) 2.6 % (1.5-5.0) 08/17/16 09:10 Baso % (Auto) 0.3 % (0.0-3.0) 08/17/16 09:10 Gran # 5.13 (1.4-6.5) 08/17/16 09:10 Lymph # 1.5 (1.2-3.4) 08/17/16 09:10 Collier # 0.6 (0.1-0.6) 08/17/16 09:10 Eos # 0.2 (0.0-0.7) 08/17/16 09:10 Baso # 0.02 K/mm3 (0.0-2.0) 08/17/16 09:10 D-Dimer, Quantitative 0.36 mg/L FEU (0-0.50) 08/17/16 10:15 pO2 79 mm/Hg (30-55) H 08/17/16 09:10 VBG pH 7.35 (7.32-7.43) 08/17/16 09:10 VBG pCO2 58.0 (40-60) 08/17/16 09:10 VBG HCO3 32.0 mmol/l (21-28) H 08/17/16 09:10 VBG Total CO2 33.8 mmol.L (22-28) H 08/17/16 09:10 VBG O2 Sat (Calc) 96.8 % (40-65) H 08/17/16 09:10 VBG Base Excess 4.7 mmol/L (0.0-2.0) H 08/17/16 09:10 VBG Potassium 3.8 mmol/L (3.6-5.2) 08/17/16 09:10 Sodium 138.0 mmol/L (132-148) 08/17/16 09:10 Chloride 105.0 mmol/L (98-107) 08/17/16 09:10 Glucose 129 mg/dl (75-110) H 08/17/16 09:10 Lactate 1.4 mmol/L (0.7-2.1) 08/17/16 09:10 FiO2 21.0 % 08/17/16 09:10 Sodium 138 mmol/L (132-148) 08/19/16 06:30 Potassium 3.6 mmol/L (3.6-5.0) 08/19/16 06:30 Chloride 99 mmol/L (95-110) 08/19/16 06:30 Carbon Dioxide 32 mmol/L (21-33) 08/19/16 06:30 Anion Gap 11 (10-20) 08/19/16 06:30 BUN 13 mg/dL (7-21) 08/19/16 06:30 Creatinine 1.0 mg/dL (0.5-1.4) 08/19/16 06:30 Est GFR ( Amer) > 60 08/19/16 06:30 Est GFR (Non-Af Amer) > 60 08/19/16 06:30 Random Glucose 127 mg/dL (70-110) H 08/19/16 06:30 Calcium 9.1 mg/dL (8.4-10.5) 08/19/16 06:30 Total Bilirubin 0.7 mg/dL (0.2-1.3) 08/19/16 06:30 AST 23 U/L (15-59) 08/19/16 06:30 ALT 31 U/L (7-56) 08/19/16 06:30 Alkaline Phosphatase 100 U/L (38-133) 08/19/16 06:30 Lactate Dehydrogenase 487 U/L (333-699) 08/17/16 09:10 Total Creatine Kinase 133 U/L (35-230) 08/17/16 09:10 Troponin I < 0.01 ng/mL 08/18/16 06:30 NT-Pro-B Natriuret Pep 153 pg/mL (0-450) 08/17/16 09:10 Total Protein 7.5 g/dL (5.8-8.3) 08/19/16 06:30 Albumin 4.1 g/dL (3.0-4.8) 08/19/16 06:30 Globulin 3.5 gm/dL 08/19/16 06:30 Albumin/Globulin Ratio 1.2 (1.1-1.8) 08/19/16 06:30 TSH 3rd Generation 2.78 mIU/mL (0.46-4.68) 08/17/16 09:10 Venous Blood Potassium 3.8 mmol/L (3.6-5.2) 08/17/16 09:10 Urine Color Yellow (YELLOW) 08/17/16 10:15 Urine Appearance Clear (CLEAR) 08/17/16 10:15 Urine pH 6.0 (4.7-8.0) 08/17/16 10:15 Ur Specific Norman 1.020 (1.005-1.035) 08/17/16 10:15 Urine Protein Negative mg/dL (<30 mg/dL) 08/17/16 10:15 Urine Glucose (UA) Negative mg/dL (NEGATIVE) 08/17/16 10:15 Urine Ketones Negative mg/dL (NEGATIVE) 08/17/16 10:15 Urine Blood Small (NEGATIVE) H 08/17/16 10:15 Urine Nitrate Negative (NEGATIVE) 08/17/16 10:15 Urine Bilirubin Negative (NEGATIVE) 08/17/16 10:15 Urine Urobilinogen 0.2 E.U./dL (<1 E.U./dL) 08/17/16 10:15 Ur Leukocyte Esterase Trace Edie/uL (NEGATIVE) H 08/17/16 10:15 Urine RBC 15 - 20 /hpf (0-2) 08/17/16 10:15 Urine WBC 0 - 2 /hpf (0-6) 08/17/16 10:15 - Hospital Course Hospital Course: The patient is a 66 yo man with CAD s/p PCI with stent placement, CHF, ESTRADA and morbid obesity who presented to [facility] for evaluation of a 2 week history of worsening pedal edema and exertional dypsnea. The patient recently traveled to the [place] and forgot to bring his medications with him. He was also noncompliant with diet as advised given his underlying cardiac status. Upon arrival to the ED he was noted to be tachypneic, hypoxic and with significant pedal edema. He was placed on BiPAP and started on IV lasix before being admitted to the telemetry ymles for continued management of acute systolic CHF exacerbation. Upon admission to the telemetry myles the patient was evaluated by Dr. Metz. He was continued on IV Lasix with adequate diuresis. He also underwent a TTE which was largely unchanged from prior. Over the following 36 hours he demonstrated significant diuresis and returned to his baseline respiratory status. He was ambulating around the telemetry myles without difficulty and was deemed stable for discharge to home. Discharge Plan - Follow Up Plan Condition: STABLE Disposition: HOME/ ROUTINE Instructions: Heart Failure (DC), Coronary Artery Disease (GEN), Sleep Apnea ( GEN), Obesity (GEN), Dyspnea (GEN), BiPAP (GEN), Edema (GEN), Heart Failure (GEN ), Pacemaker (DC), Pacemaker (GEN), Pulmonary Edema (DC), Pulmonary Edema (GEN) , Ascites (DC), Ascites (GEN) Referrals: [facility],Obi Quintanilla MD [Primary Care Provider] - Follow up with primary Nicola Metz MD [Staff Provider] -
== END 2016-08-19 10:18 | disposition home or self-care (01) ==
LOC: ED 08:34 → ERH 12:16 → 2RSO 13:12 → 5RNO 08-18 16:12
PROVIDERS: ADMIT Student in an Organized Health Care Education/Training Program; ATTEND Student in an Organized Health Care Education/Training Program
DX: I11.0 Hypertensive heart disease with heart failure (principal); I50.21 Acute systolic (congestive) heart failure; I25.2 Old myocardial infarction; E66.01 Morbid (severe) obesity due to excess calories; I25.118 Atherosclerotic heart disease of native coronary artery with other forms of angina pectoris; G47.33 Obstructive sleep apnea (adult) (pediatric); J44.9 Chronic obstructive pulmonary disease, unspecified; E55.9 Vitamin D deficiency, unspecified; Z68.37 Body mass index [BMI] 37.0-37.9, adult; Z91.19 Patient's noncompliance with other medical treatment and regimen; Z95.5 Presence of coronary angioplasty implant and graft; Z79.82 Long term (current) use of aspirin; Z79.02 Long term (current) use of antithrombotics/antiplatelets
CPT/HCPCS: 36415; 71010; 80053; 81001; 82550; 82803; 83615; 83880; 84443; 84484; 85025; 85027; 85378; 87040; 87086; 93005; 93306; 96374; 99285; G0378; J1940

== ENCOUNTER 2017-05-16 07:55 | Day surgery (SDC) | payer MEDICARE, OTHER ==
[2017-04-16 14:56] VITALS: BMI 38.6
[2017-05-16] MEDS ORDERED: Propofol 10 mg/ml Inj (20 ML) ONE (08:44)
[2017-05-16] MEDS ORDERED: Lidocaine 2% Inj (20ml) ONE (09:28)
[2017-05-16] MEDS ORDERED: Sodium Chloride 0.9% 1,000 ML IV SCH (09:30)
[2017-05-16 09:53] VITALS: O2SAT 95
[2017-05-16 10:15] VITALS: BP 125/76; PULSE 102; RESP 16; TEMP 98.1
== END 2017-05-16 10:36 | disposition home or self-care (01) ==
LOC: ENDO 07:55
PROVIDERS: ATTEND Specialist
DX: Z12.11 Encounter for screening for malignant neoplasm of colon (principal); D12.4 Benign neoplasm of descending colon; K57.30 Diverticulosis of large intestine without perforation or abscess without bleeding; K64.8 Other hemorrhoids; I25.10 Atherosclerotic heart disease of native coronary artery without angina pectoris; I10 Essential (primary) hypertension
CPT/HCPCS: 45385; 88305; J2704; J7040 ×2

== ENCOUNTER → 2017-08-30 | Day surgery (SDC) | payer MEDICARE ==
[2017-08-28 09:24] VITALS: BMI 38.6
[~2017-08-30] MED LIST: Iodixanol 320 MG/ML 100 ML BOTTLE IV ONE; Iodixanol 320 MG/ML 200 ML BOTTLE IV ONE; Iohexol 350mgl/ml 50 ML ONE; Lidocaine 2% Inj (20ml) ONE; Midazolam 2 MG/2 ML VIAL ONE; Nitroglycerin 50mg in D5W 0 MG/0 ML BOTTLE IV ONE; Phenylephrine 10 mg/ml Inj ONE; Sodium Chloride 0.9% 1,000 ML IV SCH
[2017-08-30 07:10] LABS: BASO # 0.04 K/mm3 (0.0-2.0); BASO % 0.6 % (0.0-3.0); EOS # 0.2 (0.0-0.7); EOS % 2.5 % (1.5-5.0); GRAN # 4.98 (1.4-6.5); GRAN % 70.1 % (50.0-68.0); HEMOGLOBIN 15.5 g/dL (14.0-18.0); LYMPH # 1.2 (1.2-3.4); LYMPH % 17.2 % (22.0-35.0); MEAN CELL VOLUME 87.5 fl (80.0-105.0); MEAN CORPUSCULAR HGB CONC 33.1 g/dl (31.0-37.0); MEAN PLATELET VOLUME 10.7 fl (7.0-11.0); MONO # 0.7 (0.1-0.6); MONO % 9.6 % (1.0-6.0); RBC 5.35 10^6/uL (3.5-6.1); RED CELL DISTRIBUTION WIDTH 13.3 % (11.5-14.5); WHITE BLOOD COUNT 7.1 10^3/ul (4.5-11.0)
[2017-08-30 07:14] LABS: BLOOD UREA NITROGEN 11 mg/dL (7-21); CALCIUM 8.9 mg/dL (8.4-10.5); GFR AFRICAN-AMERICAN > 60; GFR NON-AFRICAN AMERICAN > 60; HDL CHOLESTEROL 41 mg/dL (29-60)
[2017-08-30 07:18] LABS: PARTIAL THROMBOPLASTIN TIME 28.4 Seconds (25.1-36.5); PROTHROMBIN TIME 11.5 SECONDS (9.4-12.5)
[2017-08-30 07:25] LABS: LDL CHOLESTEROL 74 mg/dL (0-129)
[2017-08-30 07:27] VITALS: RESP 18
[2017-08-30 09:20] VITALS: TEMP 97.6
[2017-08-30 13:25] VITALS: BP 108/87; PULSE 77; O2SAT 92
--- NOTE | 2017-08-30 13:36 | CARDCATH ---
PROCEDURE DATE: 08/30/2017 HISTORY: The patient is a 67-year-old male with a history of multivessel PTCA in the past who presents with exertional shortness of breath. He suffers from hypertension and hypercholesterolemia and is morbidly obese and has been noncompliant with any cardiac risk reduction program. Stress test was abnormal. Because of this, cardiac catheterization was recommended. PROCEDURE: Left heart catheterization with coronary arteriography and left ventriculogram with an FFR performed. The right femoral artery was cannulated with a 6-Welsh sheath. There were no complications. I performed moderate sedation which included the presence of an independent trained observer that assisted in monitoring the patient's level of consciousness and physiologic status. After administration of Versed and fentanyl, my intra service time was 30 minutes. The findings on catheterization revealed the left main artery that was unremarkable. The stent in the proximal LAD was patent with no critical lesions. The diagonal vessels revealed intimal irregularities without significant stenoses. The circumflex artery in the SPANISH projection revealed two tandem 60% lesions in the proximal portion of the circumflex artery. The right coronary artery was a dominant vessel and revealed a patent stent in the midportion. In a moderate size RV branch, there was an 80-90% proximal/ostial stenoses followed by a 70-80% stenoses in its bifurcation. LV function revealed mildly hypokinetic LV with an EF of approximately 50%. The patient was started on intravenous Angiomax on the fluoroscopic guide, an FFR wire was placed into the circumflex artery. FFR was measured to be 0.99. No angioplasty was performed. Angio-Seal was used to close the femoral artery site. The patient tolerated the procedure well. In summary, the procedure revealed patent stents in the proximal LAD as well as the proximal RCA. New 50-60% lesions in the proximal circumflex artery, in which the FFR was 0.99 There is critical lesions in the RV branch of the RCA. LV function was better than reported on stress test with an EF of approximately 50%. Given these findings, the patient will be continued on his present medical therapy. I have reemphasized the need for weight loss as well as a cardiac risk reduction program with the patient in detail along with his . The patient seems to better understand. We will follow him next week in the office before allowing him to travel on vacation. Nicola Metz MD [facility] # [id number]
--- NOTE | 2017-08-30 19:50 | CARD ---
APPROVED REPORT Date of service: 08/30/2017 EKG Measurement Heart [id number] <Conclusion> Normal sinus rhythm Possible Left atrial enlargement Left axis deviation Incomplete right bundle branch block Cannot rule out Anterior infarct, age undetermined T wave abnormality, consider lateral ischemia Abnormal ECG
== END | disposition home or self-care (01) ==
LOC: CATH 06:08
PROVIDERS: ATTEND Internal Medicine Cardiovascular Disease
DX: I25.10 Atherosclerotic heart disease of native coronary artery without angina pectoris (principal); I10 Essential (primary) hypertension; E66.01 Morbid (severe) obesity due to excess calories; E78.00 Pure hypercholesterolemia, unspecified; Z91.19 Patient's noncompliance with other medical treatment and regimen; R94.39 Abnormal result of other cardiovascular function study; Z98.61 Coronary angioplasty status; Z68.38 Body mass index [BMI] 38.0-38.9, adult
CPT/HCPCS: 36415; 80048; 80061; 85025; 85610; 85730; 86850; 86900; 93005; 93458; 93571; 99152; 99153; C1760; C1769 ×2; C1887; C2629; J0583; J1644; J2250; J3010; J7030; J7040; Q9966; Q9967 ×2

== ENCOUNTER 2018-04-29 07:23 | Outpatient (CLI) | payer MEDICARE, OTHER | END 2018-04-29 07:24 | disposition home or self-care (01) | LOC: CARDIO 07:23 | DX: R07.9 Chest pain, unspecified (principal) ==

== ENCOUNTER 2018-05-14 06:03 | Day surgery (SDC) | payer MEDICARE, OTHER ==
[2018-04-29 12:27] VITALS: BMI 38.5
[2018-05-14 06:54] LABS: BASO # 0.03 K/mm3 (0.0-2.0); BASO % 0.4 % (0.0-3.0); EOS # 0.2 (0.0-0.7); EOS % 2.5 % (1.5-5.0); HEMOGLOBIN 15.9 g/dL (14.0-18.0); LYMPH # 1.6 (1.2-3.4); LYMPH % 21.4 % (22.0-35.0); MEAN CELL VOLUME 89.5 fl (80.0-105.0); MEAN CORPUSCULAR HEMOGLOBIN 29.3 pg (25.0-35.0); MEAN CORPUSCULAR HGB CONC 32.7 g/dl (31.0-37.0); MEAN PLATELET VOLUME 10.6 fl (7.0-11.0); MONO # 0.4 (0.1-0.6); MONO % 5.7 % (1.0-6.0); RBC 5.43 10^6/uL (3.5-6.1); RED CELL DISTRIBUTION WIDTH 13.5 % (11.5-14.5); WHITE BLOOD COUNT 7.6 10^3/uL (4.5-11.0)
[2018-05-14 07:02] LABS: BLOOD UREA NITROGEN 10 mg/dL (7-21); GFR NON-AFRICAN AMERICAN > 60; HDL CHOLESTEROL 43 mg/dL (29-60)
[2018-05-14 07:04] LABS: INR 1.04; PROTHROMBIN TIME 11.7 SECONDS (9.4-12.5)
[2018-05-14] MEDS ORDERED: Lidocaine PF 2% (5 ml) Inj (For Cardiac Arrhy) ONE (07:09)
[2018-05-14] MEDS ORDERED: Iohexol 350 MG/100 ML VIAL ONE (07:09)
[2018-05-14] MEDS ORDERED: Iohexol 350mgl/ml 50 ML ONE (07:10)
[2018-05-14 07:12] LABS: LDL CHOLESTEROL 79 mg/dL (0-129)
[2018-05-14] MEDS ORDERED: Midazolam 2 MG/2 ML VIAL ONE ×2 (08:22→08:25)
[2018-05-14] MEDS ORDERED: Sodium Chloride 0.9% 1,000 ML IV SCH (09:15)
[2018-05-14 09:28] VITALS: RESP 18; TEMP 97.8
[2018-05-14] MEDS ORDERED: Metoprolol Succinate 50 mg XL Tab PO ONE (09:33)
[2018-05-14 12:16] VITALS: O2SAT 94
--- NOTE | 2018-05-14 12:28 | CARD ---
APPROVED REPORT Date of service: 05/14/2018 EKG Measurement Heart [id number] <Conclusion> Sinus rhythm with 1st degree AV block Possible Left atrial enlargement Left axis deviation Incomplete right bundle branch block Inferior infarct, age undetermined ST & T wave abnormality, consider lateral ischemia Abnormal ECG
[2018-05-14 13:35] VITALS: BP 135/79; PULSE 68
--- NOTE | 2018-05-14 14:12 | CARDCATH ---
PROCEDURE DATE: 05/14/2018 HISTORY: The patient is a 67-year-old male with a history of coronary artery disease in the past. He suffers from hypertension, hypercholesterolemia and obesity and has been noncompliant with most medical advice in terms of risk-reduction behavior. It is likely he is also diabetic with elevated glucose consistently. The patient underwent a stress test for a preop procedure and was found to have new ischemic changes. Because of this, cardiac catheterization was recommended. PROCEDURE: Left heart catheterization with coronary arteriography and left ventriculogram. The right femoral artery was cannulated with 6-Kazakh sheath. There were no complications. I performed moderate sedation which included the presence of an independent trained observer that assisted in monitoring the patient's level of consciousness and physiologic status. After administration of Versed and fentanyl, my intra-service time was 30 minutes. The findings on catheterization revealed a left ventricle that was globally hypokinetic with an estimated ejection fraction of 40%. His coronary anatomy revealed a codominant circulation. The RCA revealed diffuse atherosclerosis with a 50% stenosis in the midportion. The left main artery revealed atherosclerosis with an irregular plaque in the superior portion. However, there was no critical lesions. The circumflex artery and obtuse marginal branches revealed diffuse atherosclerosis without critical lesions. There was a ramus intermedius that shows two 70% lesions in its proximal portion. The LAD revealed a patent stent in its proximal portion as well as in the mid to distal portion with no critical lesions. Angio-Seal was used to close the femoral artery site. The patient tolerated the procedure well. In summary, the procedure revealed two new 70% lesions in the ramus intermedius. There is a 50% stenosis in the mid RCA. Patent stents in the proximal LAD as well as the mid to distal LAD. EF is approximately 40%. Given these findings, and after extensive risks, benefits discussion, it would probably be best to treat the patient's coronary artery disease at this time with medical therapy. We will add beta-blockers. This will allow him to undergo his procedures for his urologic disease. This would be at acceptable cardiac risk. After he has completed his urologic procedure, we will bring him back for possible PTCA and stent of the two lesions in the ramus intermedius. I have discussed the risks, benefits and the rationalization with this with the patient and family in detail. All questions were answered and they agree. Nicola Metz MD [facility] # [id number]
== END 2018-05-14 15:40 | disposition home or self-care (01) ==
LOC: SDSVAS 06:03
PROVIDERS: ATTEND Internal Medicine Cardiovascular Disease
DX: I25.110 Atherosclerotic heart disease of native coronary artery with unstable angina pectoris (principal); I11.0 Hypertensive heart disease with heart failure; I50.9 Heart failure, unspecified; I25.2 Old myocardial infarction; E66.9 Obesity, unspecified; N20.0 Calculus of kidney; E78.5 Hyperlipidemia, unspecified; N40.0 Benign prostatic hyperplasia without lower urinary tract symptoms; Z86.010 Personal history of colon polyps; Z68.38 Body mass index [BMI] 38.0-38.9, adult; E78.00 Pure hypercholesterolemia, unspecified; I44.0 Atrioventricular block, first degree; Z91.19 Patient's noncompliance with other medical treatment and regimen; Z95.5 Presence of coronary angioplasty implant and graft
CPT/HCPCS: 36415; 80048; 80061; 85025; 85610; 85730; 86850; 86900; 93005; 93458; 99152; 99153; C1760; C1769; C2629; J0583; J1644; J2250; J3010; J7030; Q9967

== ENCOUNTER 2018-05-20 06:14 | Day surgery (SDC) | payer MEDICARE, OTHER ==
[2018-04-29 12:27] VITALS: BMI 38.5
[2018-05-20 07:13] LABS: BASO # 0.02 K/mm3 (0.0-2.0); BASO % 0.3 % (0.0-3.0); EOS # 0.2 (0.0-0.7); EOS % 2.6 % (1.5-5.0); HEMOGLOBIN 16.5 g/dL (14.0-18.0); LYMPH # 1.3 (1.2-3.4); LYMPH % 18.2 % (22.0-35.0); MEAN CELL VOLUME 90.1 fl (80.0-105.0); MEAN CORPUSCULAR HEMOGLOBIN 29.6 pg (25.0-35.0); MEAN CORPUSCULAR HGB CONC 32.9 g/dl (31.0-37.0); MEAN PLATELET VOLUME 10.7 fl (7.0-11.0); MONO # 0.8 (0.1-0.6); MONO % 11.2 % (1.0-6.0); RBC 5.57 10^6/uL (3.5-6.1); RED CELL DISTRIBUTION WIDTH 13.3 % (11.5-14.5); WHITE BLOOD COUNT 6.9 10^3/uL (4.5-11.0)
[2018-05-20 07:24] LABS: INR 1.12; PARTIAL THROMBOPLASTIN TIME 32.2 Seconds (26.9-38.3); PROTHROMBIN TIME 12.7 SECONDS (9.4-12.5)
[2018-05-20 07:29] LABS: BLOOD UREA NITROGEN 14 mg/dL (7-21); CALCIUM 9.5 mg/dL (8.4-10.5); GFR NON-AFRICAN AMERICAN > 60; HDL CHOLESTEROL 36 mg/dL (29-60)
[2018-05-20 07:33] LABS: LDL CHOLESTEROL 71 mg/dL (0-129)
[2018-05-20] MEDS ORDERED: Iohexol 350mgl/ml 50 ML ONE (10:04)
[2018-05-20] MEDS ORDERED: Iodixanol 320 MG/ML 200 ML BOTTLE IV ONE (10:04)
[2018-05-20] MEDS ORDERED: Iodixanol 320 MG/ML 100 ML BOTTLE IV ONE (10:04)
[2018-05-20] MEDS ORDERED: Lidocaine PF 2% (5 ml) Inj (For Cardiac Arrhy) ONE (10:04)
[2018-05-20] MEDS ORDERED: Midazolam 2 MG/2 ML VIAL ONE ×2 (10:25→10:36)
[2018-05-20] MEDS ORDERED: Naloxone 0.4 mg/ml Inj (Adult) ONE (10:41)
[2018-05-20] MEDS ORDERED: Flumazenil 0.1 mg/ml Inj (5ml) IVP ONE (10:42)
[2018-05-20] MEDS ORDERED: Sodium Chloride 0.9% 500 ML IV SCH (11:52)
--- NOTE | 2018-05-20 13:19 | CARDCATH ---
PROCEDURE DATE: 05/20/2018 The patient is a 67-year-old male with morbid obesity who presents with recurrence of angina. Stress test is abnormal. He was in the process of having clearance for a kidney stone removal in which they decided against it, so instead we brought him back for PTCA and stent of a ramus intermedius versus a high diagonal vessel. The left femoral artery was cannulated with a 6-Belarusian sheath. There were no complications. I performed moderate sedation which included the presence of an independent trained observer that assisted in monitoring the patient's level of consciousness and physiologic status. After administration of Versed and fentanyl, my intra-service time was 45 minutes. The findings on catheterization revealed a calcified proximal LAD as well as the distal left main. In addition, there is a large diagonal vessel which revealed an eccentric 70% stenoses in its proximal portion with a tandem lesion of about 50% proximal to that. The patient started on intravenous Angiomax and measurement of his PRU was therapeutic. The EBU guider was placed in the ostium of the left main. An 0.04 ATW wire was used to place into the high diagonal vessel. A second wire was used for better support. In addition, a 2.5 balloon was utilized to predilate the proximal portion of the diagonal vessel as well as the lesion itself. A 3.5 x 15 mm drug-eluting stent was placed and deployed in the critical lesion with excellent results with no residual stenosis and HUMBERTO-III flow. Angio-Seal was used to close the left femoral artery site. The patient tolerated the procedure well. In summary, the procedure was successful PTCA and stent of a high diagonal lesion versus a ramus intermedius with a drug-eluting stent, cardiac catheterization revealed normal LV function with a critical lesion in the high diagonal vessel. Given these findings, the patient will need to remain on aspirin indefinitely and Plavix for at least a year. It would be important for him to lose weight. In addition, the PRU results showed that the patient was therapeutic on Plavix. Nicola Metz MD
--- NOTE | 2018-05-20 17:52 | CARD ---
APPROVED REPORT Date of service: 05/20/2018 EKG Measurement Heart [id number] CO [id number] <Conclusion> Sinus rhythm with 1st degree AV block Possible Left atrial enlargement Left axis deviation Incomplete right bundle branch block T wave abnormalities CCR Abnormal ECG
--- NOTE | 2018-05-21 01:07 | HP ---
HISTORY OF PRESENT ILLNESS: The patient is a 67-year-old man with a past medical history of CAD s/p PCI with stent placement who presented for electively scheduled cardiac catheterization. He was taken to the cardiac catheterization lab with Dr. Metz where he underwent successful PCI with CAIN stent placement to the high diagonal vessel. He tolerated the procedure well and no postprocedure complications were noted. He was subsequently transferred to the telemetry myles for continued post cardiac catheterization care. PAST MEDICAL HISTORY: As per HPI, also hypertension, hyperlipidemia, morbid obesity, ESTRADA and gout. PAST SURGICAL HISTORY: As per HPI. ALLERGIES: NKDA. MEDICATIONS: Aspirin 81 mg p.o. daily, Plavix 75 mg p.o. daily, Crestor 10 mg p.o. daily, Amlodipine 10 mg p.o. daily, Uloric 40 mg p.o. daily and Motrin 800 mg p.o. q. 8 hours p.r.n. pain. FAMILY HISTORY: Significant for hypertension, hyperlipidemia and coronary artery disease. SOCIAL HISTORY: The patient reports social alcohol use but otherwise denies any toxic habits. REVIEW OF SYSTEMS: A 12-point review of systems is negative except as per HPI. PHYSICAL EXAMINATION VITAL SIGNS: Temperature 98.2, pulse 72, blood pressure 133/78, respiratory rate 20, oxygen saturation 99% on room air. GENERAL: No apparent distress. HEENT: PERRL, EOMI. No scleral icterus. No conjunctival pallor. NECK: No JVD, no bruits. LUNGS: Clear to auscultation. CARDIOVASCULAR: Regular rate and rhythm. Normal S1, S2. ABDOMEN: Obese, normoactive bowel sounds, soft, nontender and nondistended. EXTREMITIES: No edema. Cardiac catheterization site appears clean, dry and intact. NEUROLOGIC: Awake, alert and oriented x 3. No focal motor deficits. LABORATORY DATA: WBC is 6.9, hemoglobin 16.5, hematocrit 50, platelets 165. Sodium 142, potassium 4.3, chloride 103, bicarb 31, BUN 14, creatinine 1. Cholesterol 137, triglycerides 148, HDL 36, LDL 71. ASSESSMENT: The patient is a 67-year-old man with multiple medical comorbidities who presented for electively scheduled cardiac catheterization and is now s/p PCI with CAIN stent placement to the high diagonal lesion. PLAN: 1. CAD s/p PCI with multiple stent placement. Continue with post cardiac catheterization care as per Dr. Metz. Continue Aspirin 81 mg p.o. daily, Plavix 75 mg p.o. daily and Lipitor 40 mg p.o. daily. 2. Hypertension. Blood pressure controlled. The patient to resume Amlodipine 10 mg p.o. daily upon discharge. 3. Hyperlipidemia. Lipid panel reviewed and satisfactory. The patient to resume Crestor 10 mg p.o. daily upon discharge. 4. Obesity. The patient has been extensively counseled on the need for lifestyle modifications. 5. ESTRADA. 6. Gout. The patient to resume Uloric on discharge. 7. Prophylaxis. GI prophylaxis not indicated as the patient is eating. DVT prophylaxis not indicated as the patient is ambulatory. CODE STATUS: Full code. Obi Byrd MD [facility]
[2018-05-21 03:57] VITALS: O2SAT 94
[2018-05-21 12:09] VITALS: BP 148/96; PULSE 80; RESP 20; TEMP 97.5
--- NOTE | 2018-05-21 12:36 | PN ---
SUBJECTIVE: The patient was seen and examined at bedside on the telemetry myles. No acute events overnight. He remains afebrile, hemodynamically stable and is doing well s/p cardiac catheterization. This morning he feels well, offers no complaints and is looking forward to going home. OBJECTIVE: VITAL SIGNS: Temperature 97.9, pulse 72, blood pressure 119/76, respiratory rate 19, oxygen saturation 94% on room air. GENERAL: No apparent distress. HEENT: PERRL, EOMI. No scleral icterus. No conjunctival pallor. NECK: No JVD, no bruits. LUNGS: Clear to auscultation. CARDIOVASCULAR: Regular rate and rhythm. Normal S1 and S2. ABDOMEN: Obese. Normoactive bowel sounds. Soft, nontender, nondistended. EXTREMITIES: No edema. Cardiac catheterization site appears clean, dry and intact. NEUROLOGIC: Awake, alert and oriented x 3. No focal motor deficits. LABORATORY DATA: No new labs. ASSESSMENT: The patient is a 67-year-old man with multiple medical comorbidities who presented for electively scheduled cardiac catheterization and is now s/p PCI with CAIN stent placement to the high diagonal lesion. PLAN: 1. CAD s/p PCI with multiple stent placement. Continue with post cardiac catheterization care as per Dr. Metz. Continue Aspirin 81 mg p.o. daily, Plavix 75 mg p.o. daily and Lipitor 40 mg p.o. daily. 2. Hypertension. Blood pressure controlled. The patient to resume Amlodipine 10 mg p.o. daily upon discharge. 3. Hyperlipidemia. The patient to resume Crestor 10 mg p.o. daily upon discharge. 4. Obesity. The patient has again been extensively counseled on lifestyle modifications. 5. ESTRADA. 6. Gout. 7. Prophylaxis. GI prophylaxis not indicated as the patient is eating. DVT prophylaxis not indicated as the patient is ambulatory. CODE STATUS: Full code. Obi Byrd MD [facility]
--- NOTE | 2018-05-21 14:11 | PN ---
DATE: 05/21/2018 CARDIOLOGY FOLLOWUP SUBJECTIVE: The patient is feeling okay. PHYSICAL EXAMINATION: VITAL SIGNS: Stable. NECK: Negative JVD. Physical exam is unchanged. LABORATORY DATA: Unremarkable. IMPRESSION: 1. Status post percutaneous transluminal coronary angioplasty and stent with diagonal vessel. 2. Coronary artery disease. 3. Morbid obesity. 4. Hypertension. 5. Hypercholesterolemia. 6. Recurrent noncompliance. Given these findings, the patient is stable for discharge on aspirin and Plavix and a cardiac risk reduction program. Nicola Metz MD
--- NOTE | 2018-05-21 18:33 | DS ---
ADMISSION DIAGNOSIS: CAD s/p PCI with multiple stent placement. DISCHARGE DIAGNOSIS: CAD s/p PCI with CAIN stent placement to the high diagonal lesion. SECONDARY DIAGNOSES: Hypertension, hyperlipidemia, obesity, ESTRADA and gout. CONSULTATIONS: Dr. Metz (Cardiology). IMAGING STUDIES: None. DIAGNOSTIC STUDIES: None. PROCEDURES: 1. Cardiac catheterization demonstrated multivessel disease with a calcified proximal LAD and distal left main as well as a 70% stenosis to the proximal portion of the diagonal vessel which was revascularized with a drug-eluting stent. HISTORY OF PRESENT ILLNESS: The patient is a 67-year-old man with a past medical history of CAD s/p PCI with stent placement who presented for electively scheduled cardiac catheterization. He was taken to the cardiac catheterization lab with Dr. Metz where he underwent successful PCI with CAIN stent placement to the high diagonal vessel. He tolerated the procedure well and no postprocedure complications were noted. He was subsequently admitted to the telemetry myles for post cardiac catheterization care. HOSPITAL COURSE: Upon admission to the telemetry myles, post cardiac catheterization care was rendered. His hospital course was unremarkable and the following day he was ambulating around the telemetry myles without difficulty. After evaluation with Dr. Metz, he was cleared for discharge home. CONDITION: Good, improved. DISPOSITION: Home. DISCHARGE MEDICATIONS: Aspirin 81 mg p.o. daily, Plavix 75 mg p.o. daily, Crestor 10 mg p.o. daily, Amlodipine 10 mg p.o. daily, Uloric 40 mg p.o. daily and Motrin 800 mg p.o. every 8 hours p.r.n. pain. DISCHARGE INSTRUCTIONS: The patient was advised to adhere to postprocedure instructions as per Dr. Metz. He was also advised that if he develops any fevers, chills, rigors, bleeding, discharge or pain at his cardiac catheterization site to present to his PMD or to the nearest ED immediately. FOLLOWUP: The patient is to follow up with his PMD within 1 week of discharge. The patient is to follow up with Dr. Metz as scheduled. Obi Byrd MD [facility]
== END 2018-05-21 14:00 | disposition home or self-care (01) ==
LOC: CATH 06:14 → EDSTATUS 08:30 → 2RSO 11:40 → CATH 05-21 14:00
PROVIDERS: ATTEND Student in an Organized Health Care Education/Training Program
DX: I25.119 Atherosclerotic heart disease of native coronary artery with unspecified angina pectoris (principal); I10 Essential (primary) hypertension; E78.5 Hyperlipidemia, unspecified; R94.39 Abnormal result of other cardiovascular function study; E66.01 Morbid (severe) obesity due to excess calories; E78.00 Pure hypercholesterolemia, unspecified; G47.33 Obstructive sleep apnea (adult) (pediatric); I44.0 Atrioventricular block, first degree; M10.9 Gout, unspecified; Z79.82 Long term (current) use of aspirin; Z79.899 Other long term (current) drug therapy; Z95.5 Presence of coronary angioplasty implant and graft; Z91.19 Patient's noncompliance with other medical treatment and regimen; Z91.14 Patient's other noncompliance with medication regimen; Z82.49 Family history of ischemic heart disease and other diseases of the circulatory system; Z68.38 Body mass index [BMI] 38.0-38.9, adult